=== PATIENT | female | born 1970 | race Caucasian/White ===

== ENCOUNTER → 2017-03-05 | Outpatient (CLI) | payer SELFPAY ==
--- NOTE | 2017-03-05 14:51 | MM ---
Reason for exam: clinical finding. History: Patient had first child at age 42. Took hormonal contraceptives for 10 years beginning at age 20. Physical Findings: Nurse Summary: fullness in the left brast at 3-4 o'clock (Dr. Boyer). MG 3D Diag Mammo W/Cad JOSÉ MIGUEL Bilateral CC and MLO view(s) were taken. The breast tissue is heterogeneously dense. This may lower the sensitivity of mammography. There is no discrete abnormality. These results were verbally communicated with the patient and result sheet given to the patient on 03/05/17. ASSESSMENT: Negative, BI-RAD 1 RECOMMENDATION: Routine screening mammogram of both breasts in 1 year.
--- NOTE | 2017-03-05 14:52 | USB ---
Reason for exam: clinical finding. History: Patient had first child at age 42. Took hormonal contraceptives for 10 years beginning at age 20. US Breast LT Left breast ultrasound includes all four quadrants, the retroareolar region and axilla. Finding demonstrates no cystic or solid lesion seen. These results were verbally communicated with the patient and result sheet given to the patient on 03/05/17. ASSESSMENT: Negative, BI-RAD 1 RECOMMENDATION: Routine screening mammogram of both breasts in 1 year.
--- NOTE | 2017-03-06 10:21 | WWHP ---
DATE OF SERVICE: 03/05/2017 CHIEF COMPLAINT: Left breast pain x6 weeks. HPI: This is a 46-year-old G1, P1 with an LMP of 02/22/17. She uses condoms for control. The patient states she developed flu-like symptoms about 8 weeks ago. The flu was relatively long lasting flu that went on for nearly one month. About 6 weeks ago, she developed left sided breast pain, which she thought might have been related to the ribs. She also had tender lymph nodes in the left axilla. A few weeks ago she thought she felt a small lump in the upper part of the left breast, but this seemed to resolve. The left breast pain was on the lateral aspect of the breast. The discomfort has improved and is now about 80% better. She denies any nipple discharge or redness of the breast during this time. The discomfort initially started with pain with deep breaths. She is otherwise without complaints. Menses are regular every month. Past medical history is unremarkable. MEDICATIONS: None. Allergies to PENICILLIN, which caused hives. PAST SURGICAL HISTORY: section x1. PAST OB HISTORY: x1. 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 She was once told she had some small uterine fibroids. SOCIAL HISTORY: She quit smoking in 2006 and has about 2 alcoholic drinks per year. She denies drug use. She has been since 2005. She lives in [facility]. Her is from the [facility] and she is currently visiting family in [place]. 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 FAMILY HISTORY: An uncle had lymphoma. Father had CVA and atrial fibrillation. Niece and nephew have autism. Uncle has diabetes and 2 cousins also have diabetes. REVIEW OF SYSTEMS: She has gained about 5 pounds over the last year. She denies respiratory, cardiac or GI problems. PHYSICAL EXAM: Blood pressure 106/57. Height 5 feet 2 inches. Weight 116 pounds. Temperature 97.7. Pulse 88. This is a well-developed, well-nourished female who is alert and oriented x3 in no acute distress. HEENT is within normal limits. NECK: Supple without mass or thyromegaly. CHEST AND LUNGS: Clear to auscultation. HEART : Regular rate and rhythm. BREASTS: There is mild to moderate tenderness along the lateral aspect of the breast at approximately the 3 to 4 o'clock position. There is also slight fullness in this area measuring approximately 4 x 1 cm. There are no other abnormalities noted in the breast and no other tenderness or masses noted. There is no nipple discharged. There is no unusual puckering or dimpling. Axillary exam is negative for adenopathy. BACK: Negative for CVA tenderness. ABDOMEN: Soft, nontender without palpable masses. PELVIC EXAM: No external genitalia. Cervix and vagina appear normal. There is no unusual discharge. The uterus is mid position, nongravid size and nontender. There are no palpable adnexal masses or tenderness. Rectal exam was refused by the patient. IMPRESSION: A 46-year-old female with left breast pain times 6 weeks with some fullness in the area of pain at the 3 to 4 o'clock position of the left breast along the lateral border. There is also a slight fullness in the area of tenderness. Differential diagnosis will include breast cyst, breast neoplasm, rib pain, intercostal muscle pain and less likely pleuritic chest discomfort. PLAN: 1. Pap smear was performed since it has been about 4 years since her last one. 2. Self-breast examination was discussed. 3. Diagnostic mammogram will be done along with left breast ultrasound. This will be a baseline mammogram. 4. If no suspicious findings are noted with the above workup, we will proceed with conservative management. She will then followup with her spray crew in [facility] in 2 months for reevaluation. 5. I have also recommended yearly gynecologic exams. Total time spent with the patient 45 minutes. YOLANDA
== END ==
LOC: WWCWWP 12:53
PROVIDERS: ATTEND Obstetrics & Gynecology
DX: N64.4 Mastodynia (principal)
CPT/HCPCS: 76641; G0204; G0279